=== PATIENT | male | born 1990 | race Caucasian/White ===

== ENCOUNTER → 2016-02-18 | Outpatient (CLI) | payer OTHER ==
--- NOTE | 2016-02-18 17:07 | DX ---
Left Shoulder, 3 Views, at 3:39 p.m. Clinical History: 25-year-old male with left shoulder pain and a prior history of a dislocation. ICD 10 Diagnostic Code: S43.0058. Comparison Study: None. Findings: There is "scalloping" along the greater tuberosity contour, reflecting a prior Hill-Sachs i njury. There also appears to be a small avulsion fragment caudal to the inferior glenoid (over the ax illary recess). The glenohumeral and the acromioclavicular joints are anatomically-aligned. The left clavicle is intact, as is the visualized left rib cage. Along the caudal margin of the images, there is an osteolucency involving the left humeral diaphysis, which is incompletely imaged. Consider MR ev aluation with contrast for further assessment. Impression: 1. Hill-Sachs deformity associated with the greater tuberosity, with an avulsion fragment off of the inferior glenoid. 2. 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 Consider contrast-enhanced MR imag ing, for further assessment. Results and recommendations were conveyed to Russell Bennett PA-C. A test result has been communicated to a licensed care provider and documented in [employer], 5:03:07 PM , 02/18/2016, [employer] Message ID [id number].
== END ==
LOC: BRMIMAGING 15:27
PROVIDERS: ATTEND Physician Assistant
DX: S42.142A Displaced fracture of glenoid cavity of scapula, left shoulder, initial encounter for closed fracture (principal); M95.8 Other specified acquired deformities of musculoskeletal system
CPT/HCPCS: 73030-PO